=== PATIENT | male | born 1995 | race Two or more races ===

== ENCOUNTER 2019-12-05 14:47 | Emergency (ER) | payer BC ==
[~2019-12-05] VITALS: Ht 182.9 cm; Wt 81.0 kg
[2019-12-05 16:15] VITALS: BP 137/87
== END 2019-12-05 16:15 | disposition home or self-care (01) ==
LOC: EMS 14:50
DX: J06.9 Acute upper respiratory infection, unspecified (principal); J45.909 Unspecified asthma, uncomplicated